=== PATIENT | female | born 2005 | race Caucasian/White ===

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

== ENCOUNTER 2023-01-03 15:59 | Outpatient (REF) | payer OTHER, SELFPAY ==
[2023-01-05 13:38] LABS: Chlamydia Result Negative (Negative); GC Result Negative (Negative)
== END 2023-01-03 16:00 | disposition home or self-care (01) ==
LOC: NCHCN 15:59
PROVIDERS: PCP Physician Assistant; Visit Provider Nurse Practitioner Family
DX: J02.9 Acute pharyngitis, unspecified (principal); Z11.3 Encounter for screening for infections with a predominantly sexual mode of transmission
CPT/HCPCS: 87491; 87591; 87070

== ENCOUNTER 2023-01-18 16:51 | Outpatient (REF) | payer OTHER, SELFPAY | END 2023-01-18 16:52 | disposition home or self-care (01) | LOC: NCHCN 16:51 | PROVIDERS: PCP Physician Assistant; Visit Provider Physician Assistant | DX: J02.9 Acute pharyngitis, unspecified (principal) | CPT/HCPCS: 87081 ==

== ENCOUNTER 2023-04-25 17:10 | Outpatient (REF) | payer OTHER, SELFPAY ==
[2023-04-25 19:01] LABS: TSH (W/Ref FT4) 10.53 uIU/mL (0.52-4.13)
[2023-04-25 19:31] LABS: FREE T4 0.98 ng/dL (0.78-1.34)
== END 2023-04-25 17:11 | disposition home or self-care (01) ==
LOC: NCHCN 17:10
PROVIDERS: PCP Physician Assistant; Visit Provider Physician Assistant
DX: E06.3 Autoimmune thyroiditis (principal)
CPT/HCPCS: 84439; 84443